=== PATIENT | male | born 1985 | race Caucasian/White ===

== ENCOUNTER 2016-09-20 08:21 | Emergency (ER) | payer MEDICAID ==
[~2016-09-20] VITALS: Wt 106.0 kg
[~2016-09-20 08:21] MED LIST: IBUP-725
[2016-09-20] MEDS ORDERED: IBUPROFEN 600 MG TAB PO ONE (10:00)
[2016-09-20] MEDS ORDERED: HYDROCODONE/APAP (5/325) TAB PO ONE (10:00)
--- NOTE | 2016-09-20 10:22 | RADRPT ---
PROCEDURE: Left Shoulder Series CLINICAL INDICATION: Left shoulder pain after fall TECHNIQUE: Two views of the left shoulder are available for review. COMPARISON: None available FINDINGS: There is normal mineralization and alignment of the bones of the left shoulder. No fracture or disl ocation is identified. Joint spaces are well maintained. The acromioclavicular joint is grossly un remarkable. The visualized portions of the left chest wall are within normal limits. The soft tissu es are unremarkable. IMPRESSION: 1. Unremarkable left shoulder x-ray series. RPTAT: KK .Emeka Palafox MD, MD Date Time Electronically viewed and signed by .Emeka Palafox MD, on 09/20/2016 10:22 .B/
[2016-09-20] MEDS ORDERED: NAPR-260 PO (10:35)
[2016-09-20 10:41] VITALS: BP 126/75; PULSE 74; RESP 19; TEMP 98.3
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
== END 2016-09-20 10:42 | disposition home or self-care (01) ==
LOC: FTE 08:21
DX: S49.92XA Unspecified injury of left shoulder and upper arm, initial encounter (principal); F17.210 Nicotine dependence, cigarettes, uncomplicated; W18.39XA Other fall on same level, initial encounter; Y92.9 Unspecified place or not applicable
CPT/HCPCS: 73030; Z7502; Z7610